=== PATIENT | female | born 1955 | race Caucasian/White ===

== ENCOUNTER 2017-01-10 19:57 | Emergency (ER) | payer SELFPAY ==
[~2017-01-10] VITALS: Ht 157.5 cm; Wt 137.0 kg
[~2017-01-10 19:57] MED LIST: ASPIRIN EC81 MG PO; BACTRIM DS1 TAB PO; CHERATUSSIN OR; DOXYCYCL HYC100 M4 PO; NO HOME MEDS; SMZ-TMP DS1 TAB PO; ULTRAM50 M1 PO; ZYRTEC-D AL1 OR
[2017-01-10] MEDS ORDERED: NAPROSYN500 MG PO (23:03)
[2017-01-10 23:26] VITALS: BP 171/78
== END 2017-01-10 23:58 | disposition home or self-care (01) | DRG 563 ==
LOC: ED 19:57
DX: S83.92XA Sprain of unspecified site of left knee, initial encounter (principal); F17.210 Nicotine dependence, cigarettes, uncomplicated; X58.XXXA Exposure to other specified factors, initial encounter; Y93.E9 Activity, other interior property and clothing maintenance; Y92.002 Bathroom of unspecified non-institutional (private) residence as the place of occurrence of the external cause

== ENCOUNTER 2020-12-13 20:02 | Emergency (ER) | payer MEDICARE, MEDICAID ==
[~2020-12-13] VITALS: Ht 157.5 cm; Wt 116.4 kg
[~2020-12-13 20:02] MED LIST changes: +NAPROSYN500 MG PO
[2020-12-13 20:47] LABS: HEMATOCRIT 41.3 % (37.0-47.0); HEMOGLOBIN 13.2 g/dl (12.0-16.0); IMMATURE GRANULOCYTES 0.8 % (0.0-5.0); MEAN CELL VOLUME 82.4 fL CALC (80.0-100.0); MEAN CORPUSCULAR HGB 26.3 pG CALC (26.0-32.0); NEUT# 6.21 thou/uL (2.00-7.15); RED BLOOD COUNT 5.01 mill/uL (4.20-5.60); RED CELL DISTRI WIDTH 15.3 % (11.5-15.5)
[2020-12-13 21:08] LABS: ALBUMIN 3.8 g/dL (3.2-5.0); C-REACTIVE PROTEIN 7.2 mg/dL (0-0.9); CREATININE 1.1 mg/dL (0.5-1.0); MAGNESIUM 2.1 mg/dL (1.6-2.3); POTASSIUM 3.5 mmol/l (3.5-5.1); TOTAL PROTEIN 7.9 g/dL (6.3-8.2)
[2020-12-13 21:11] LABS: BILIRUBIN, TOTAL 0.9 mg/dL (0.0-1.4)
[2020-12-13 21:15] LABS: D-DIMER 5.68 mg/L (0.19-0.60); INTERNATIONAL NORMALIZED RATIO 1.2 RATIO (0.7-1.3); PROTHROMBIN TIME 12.6 SECONDS (9.0-12.5)
[2020-12-13 22:14] LABS: URINE BILIRUBIN - DIPSTICK NEGATIVE (NEGATIVE); URINE BLOOD DIPSTICK SMALL (NEGATIVE); URINE COLOR YELLOW; URINE GLUCOSE - DIPSTICK NEGATIVE (NEGATIVE); URINE KETONE NEGATIVE (NEGATIVE); URINE LEUK ESTERASE TRACE (NEGATIVE); URINE PROTEIN - DIPSTICK TRACE mg/dL (NEG-TRACE)
[2020-12-13 22:15] LABS: URINE NITRITE - DIPSTICK POSITIVE (Negative)
[2020-12-13 22:18] LABS: URINE BACTERIA RARE hpf; URINE WBC 20-50 WBC/hpf (0-5)
[2020-12-13 23:28] VITALS: BP 140/93
--- NOTE | 2020-12-15 08:23 | NUR ---
FAXED FINAL URINE C&S RESULTS TO [facility] [phone], REPORTED TO NURSE KAYA
[2021-03-08] MEDS ORDERED: DILTIAZEM90 M1 PO (10:40)
[2021-03-08] MEDS ORDERED: LIPITOR40 M1 PO (10:40)
[2021-03-08] MEDS ORDERED: LISINOPRIL5 MG PO (10:40)
[2021-03-08] MEDS ORDERED: FUROSEMIDE20 MG PO (10:40)
[2021-03-08] MEDS ORDERED: ELIQUIS5 MG PO (10:40)
[2021-03-08] MEDS ORDERED: PROTONIX40 M2 PO (10:41)
== END 2020-12-13 23:37 | disposition short-term general hospital (02) ==
LOC: ED 20:02
DX: U07.1 COVID-19 (principal); I21.4 Non-ST elevation (NSTEMI) myocardial infarction; R09.02 Hypoxemia; I26.99 Other pulmonary embolism without acute cor pulmonale; F17.200 Nicotine dependence, unspecified, uncomplicated
CPT/HCPCS: J1644; Q9967

== ENCOUNTER 2021-03-28 07:42 | Day surgery (SDC) | payer MEDICARE, MEDICAID ==
[~2021-03-28 07:42] MED LIST changes: +ADULT ASPIRIN R81 MG PO; +ALENDRONATE SOD70 MG PO; +DILTIAZEM90 M1 PO; +ELIQUIS5 MG PO; +FUROSEMIDE20 MG PO; +LIPITOR40 M1 PO; +LISINOPRIL5 MG PO; +PROTONIX40 M2 PO; +VITAMIN D31000 UNI1 PO
[2021-03-28 11:07] VITALS: BP 141/87
== END 2021-03-28 10:40 | disposition home or self-care (01) ==
LOC: ENDO 07:42 → ORM 08:45 → ENDO 09:30
PROVIDERS: ATTEND Surgery
PROC: 0DBM8ZX Excision of Descending Colon, Via Natural or Artificial Opening Endoscopic, Diagnostic (ICD-10-PCS; principal; 2021-03-28)
PROC: 0DBL8ZX Excision of Transverse Colon, Via Natural or Artificial Opening Endoscopic, Diagnostic (ICD-10-PCS; 2021-03-28)
PROC: 0DBN8ZX Excision of Sigmoid Colon, Via Natural or Artificial Opening Endoscopic, Diagnostic (ICD-10-PCS; 2021-03-28)
DX: D12.4 Benign neoplasm of descending colon (principal); D12.5 Benign neoplasm of sigmoid colon; K63.5 Polyp of colon; I10 Essential (primary) hypertension; I48.91 Unspecified atrial fibrillation; I25.10 Atherosclerotic heart disease of native coronary artery without angina pectoris; I27.20 Pulmonary hypertension, unspecified; I25.2 Old myocardial infarction